=== PATIENT | male | born 1965 | race Two or more races ===

== ENCOUNTER 2017-12-28 09:30 | Inpatient (IN) | payer OTHER ==
[~2017-12-28] VITALS: Ht 172.7 cm; Wt 107.0 kg
[2017-12-28 10:13] LABS: Basophils # (auto) 0.1 uL; Basophils % (auto) 1.2 % (0.0-2.0); Eosinophils # (auto) 0.2 uL; Eosinophils % (auto) 2.7 % (0.0-7.0); Hematocrit 43.3 % (41.0-53.0); Hemoglobin 14.6 g/dL (13.5-17.5); Lymphocytes # (auto) 1.6 uL; Lymphocytes % (auto) 17.4 % (10.0-50.0); Mean Corpuscular Hemoglobin 31.3 pg (28.0-32.0); Mean Corpuscular Hgb Conc. 33.8 g/dL (32.0-36.0); Mean Corpuscular Volume 92.6 fL (80.0-100.0); Monocytes # (auto) 0.6 uL; Monocytes % (auto) 6.7 % (0.0-12.0); Neutrophils # (auto) 6.5 uL; Nucleated Red Blood Cells % 0.1 %; Platelet Count (auto) 257 10^3/uL (140-450); Red Blood Cells 4.67 10^6/uL (4.5-5.90); Red Cell Distribution Width 15.1 % (11.8-14.3)
[2017-12-28 10:35] LABS: Albumin 3.3 g/dL (3.4-5.0); BUN/Creatinine Ratio 8.2; Bilirubin, Total 0.4 mg/dL (0.2-1.0); Calcium 8.3 mg/dL (8.5-10.1); Magnesium 2.7 mg/dL (1.6-2.6); Potassium 3.8 mmol/L (3.5-5.1); Total Protein 7.5 g/dL (6.4-8.2)
[2017-12-28] MEDS ORDERED: ASPirin 81 mg TAB ONE (12:00)
[2017-12-28] MEDS ORDERED: ASPirin 81 mg TAB PO ONE (12:15)
[2017-12-28 13:16] LABS: INR 0.9 (0.9-1.15); Partial Thromboplastin Time 28.3 sec (22.64-33.71); Prothrombin Time 9.8 sec (9.37-12.3)
[2017-12-28] MEDS ORDERED: PROMETHAZINE HCL 25 MG/ML 1ML IV PRN (14:30)
[2017-12-28] MEDS ORDERED: NITROGLYCERIN 0.4 MG SL TAB SL PRN (14:30)
[2017-12-28] MEDS ORDERED: MORPHINE SULFATE 4 MG/ML SYR/VIAL IV PRN ×2 (14:30)
[2017-12-28] MEDS ORDERED: LORazepam 0.5 MG TAB PO PRN (14:30)
[2017-12-28] MEDS ORDERED: TEMAZEPAM 15 MG CAP PO PRN (14:30)
[2017-12-28] MEDS ORDERED: ACETAMINOPHEN 500 MG TAB PO PRN (14:30)
[2017-12-28] MEDS ORDERED: LACTULOSE 20Gm/30ML SOLN PO PRN (14:30)
[2017-12-28] MEDS ORDERED: ENOXAPARIN SOD 120 MG/0.8 ML SYRINGE SC SCH (14:30)
[2017-12-28] MEDS ORDERED: HYDROcodone-ACET 5/325MG TAB PO PRN (14:30)
[2017-12-28 15:05] LABS: Basophils # (auto) 0.1 uL; Basophils % (auto) 0.8 % (0.0-2.0); Eosinophils # (auto) 0.1 uL; Eosinophils % (auto) 0.8 % (0.0-7.0); Hemoglobin 14.5 g/dL (13.5-17.5); Lymphocytes # (auto) 1.5 uL; Lymphocytes % (auto) 12.5 % (10.0-50.0); Mean Corpuscular Hemoglobin 31.4 pg (28.0-32.0); Mean Corpuscular Hgb Conc. 33.7 g/dL (32.0-36.0); Mean Corpuscular Volume 93.3 fL (80.0-100.0); Monocytes # (auto) 0.6 uL; Monocytes % (auto) 4.8 % (0.0-12.0); Neutrophils # (auto) 9.6 uL; Neutrophils % (auto) 81.1 % (37.0-80.0); Platelet Count (auto) 255 10^3/uL (140-450); Red Cell Distribution Width 15.1 % (11.8-14.3); White Blood Cell 11.9 10^3/uL (4.4-10.8)
[2017-12-28] MEDS ORDERED: ENOXAPARIN SOD 120 MG/0.8 ML SYRINGE SC ONE (15:30)
[2017-12-28 15:31] LABS: CRP High Sensitivity 0.81 mg/dL (< 0.3)
[2017-12-28] MEDS: SODIUM CHLORIDE 0.9% 1,000 ML IV SCH (16:00)
[2017-12-28] MEDS: METOPROLOL TARTRATE 25 MG TAB PO SCH ×2 (16:01→22:00)
[2017-12-28] MEDS: NITROGLYCERIN 0.2MG/HR TOPICAL PATCH TD SCH (16:01)
[2017-12-28 21:48] LABS: Alcohol, Urine < 3.0 mg/dL (0-5); Amphetamine Screen, Urine NEGATIVE (NEGATIVE); Barbiturate Scree,Urine NEGATIVE (NEGATIVE); Benzodiazephine Screen, Urine NEGATIVE (NEGATIVE); Cannabinoid Screen, Urine NEGATIVE (NEGATIVE); Cocaine Screen, Urine NEGATIVE (NEGATIVE); Opiate Scree,Urine NEGATIVE (NEGATIVE); Phencyclidine Screen, Urine NEGATIVE (NEGATIVE)
[2017-12-28] MEDS ORDERED: ATORVASTATIN 20 MG TAB PO SCH (22:00)
[2017-12-28] MEDS: ENOXAPARIN SOD 120 MG/0.8 ML SYRINGE SC SCH (23:31)
[2017-12-29] VITALS (21 sets, daily range): BP systolic 101–148; BP diastolic 64–107
[2017-12-29] MEDS: SODIUM CHLORIDE 0.9% 1,000 ML IV SCH ×2 (04:00→16:57)
[2017-12-29 06:02] LABS: Basophils # (auto) 0.1 uL; Basophils % (auto) 1.1 % (0.0-2.0); Eosinophils # (auto) 0.2 uL; Eosinophils % (auto) 1.9 % (0.0-7.0); Hemoglobin 13.2 g/dL (13.5-17.5); Lymphocytes # (auto) 2.2 uL; Lymphocytes % (auto) 23.1 % (10.0-50.0); Mean Corpuscular Hemoglobin 31.3 pg (28.0-32.0); Mean Corpuscular Hgb Conc. 33.8 g/dL (32.0-36.0); Mean Corpuscular Volume 92.6 fL (80.0-100.0); Monocytes # (auto) 0.7 uL; Monocytes % (auto) 7.1 % (0.0-12.0); Neutrophils # (auto) 6.4 uL; Neutrophils % (auto) 66.8 % (37.0-80.0); Nucleated Red Blood Cells % 0.1 %; Platelet Count (auto) 229 10^3/uL (140-450); Red Blood Cells 4.21 10^6/uL (4.5-5.90); Red Cell Distribution Width 15.5 % (11.8-14.3); White Blood Cell 9.6 10^3/uL (4.4-10.8)
[2017-12-29 06:19] LABS: Alanine Aminotransferase 26 U/L (16-61); Albumin 2.8 g/dL (3.4-5.0); Alkaline Phosphatase 88 U/L (45-117); Anion Gap 8 (5-15); Aspartate Aminotransferase 45 U/L (15-37); BUN/Creatinine Ratio 13.2; Bilirubin, Total 0.3 mg/dL (0.2-1.0); Blood Urea Nitrogen 14 mg/dL (7-18); Calcium 8.4 mg/dL (8.5-10.1); Carbon Dioxide 27 mmol/L (21-32); Chloride 106 mmol/L (98-107); Cholesterol 184 mg/dL (< 200); GFR African American 95 mL/min; GFR Non-African American 79 mL/min; Glucose 105 mg/dL (74-106); HDL Cholesterol 27 mg/dL (40-59); Potassium 3.8 mmol/L (3.5-5.1); Sodium 141 mmol/L (136-145); Total Protein 6.1 g/dL (6.4-8.2); Triglycerides 463 mg/dL (< 150)
[2017-12-29 07:39] LABS: Urine Bacteria FEW /hpf (None Seen); Urine Blood Negative /uL (Negative); Urine Mucus FEW (None Seen); Urine Specific Gravity 1.021 (1.001-1.035); Urine WBC 9 /hpf (0 - 3)
[2017-12-29] MEDS ORDERED: ASPirin 325 MG TAB PO ONE (08:45)
[2017-12-29] MEDS ORDERED: LIDOCAINE 2%HCL (LOCAL ANESTH.) INJ 20ML MDV ONE (08:48)
[2017-12-29] MEDS ORDERED: IODIXANOL 320MG/ML 100ML BTL IV ONE ×2 (08:48→10:35)
[2017-12-29] MEDS: PANTOPRAZOLE 40 MG TAB PO SCH (08:53)
[2017-12-29] MEDS: NITROGLYCERIN 0.2MG/HR TOPICAL PATCH TD SCH (08:53)
[2017-12-29] MEDS: ENOXAPARIN SOD 120 MG/0.8 ML SYRINGE SC SCH (08:53)
[2017-12-29] MEDS: METOPROLOL TARTRATE 25 MG TAB PO SCH ×2 (08:56→21:41)
[2017-12-29] MEDS ORDERED: ANGIOMAX 250 MG VIAL IV ONE (10:12)
[2017-12-29] MEDS ORDERED: fentaNYL CITRATE 100 MCG/2 ML VL ONE (10:12)
[2017-12-29] MEDS ORDERED: MIDAZOLAM HCL 1MG/1ML-2 ML VIAL ONE (10:13)
[2017-12-29] MEDS ORDERED: SODIUM CHL 0.9% 50 ML ONE (10:13)
[2017-12-29] MEDS ORDERED: PRASUGREL HCL 10 MG TAB ONE (10:29)
[2017-12-29] MEDS ORDERED: EPTIFIBATIDE INJ (2MG/ML) 10ML VIAL IV ONE (10:36)
[2017-12-29] MEDS ORDERED: EPTIFIBATIDE DRIP(0.75MG/ML) 100 ML IV ONE ×2 (10:40→15:14)
[2017-12-29] MEDS ORDERED: NITROGLYCERIN 0.4MG/DOSE SPRAY 4.9GM ONE (10:43)
[2017-12-29] MEDS: LISINOPRIL 10 MG TAB PO SCH (15:30)
[2017-12-29] MEDS ORDERED: ATORVASTATIN 20 MG TAB PO SCH (22:00)
[2017-12-30] VITALS (13 sets, daily range): BP systolic 96–138; BP diastolic 63–88
[2017-12-30 04:02] LABS: Basophils # (auto) 0.1 uL; Basophils % (auto) 0.8 % (0.0-2.0); Eosinophils # (auto) 0.1 uL; Eosinophils % (auto) 0.7 % (0.0-7.0); Hematocrit 39.9 % (41.0-53.0); Hemoglobin 13.5 g/dL (13.5-17.5); Lymphocytes # (auto) 1.7 uL; Lymphocytes % (auto) 16.2 % (10.0-50.0); Mean Corpuscular Hemoglobin 31.5 pg (28.0-32.0); Mean Corpuscular Hgb Conc. 33.7 g/dL (32.0-36.0); Mean Corpuscular Volume 93.5 fL (80.0-100.0); Monocytes # (auto) 0.7 uL; Monocytes % (auto) 6.3 % (0.0-12.0); Neutrophils # (auto) 8.2 uL; Nucleated Red Blood Cells % 0.1 %; Platelet Count (auto) 204 10^3/uL (140-450); Red Blood Cells 4.27 10^6/uL (4.5-5.90); Red Cell Distribution Width 14.8 % (11.8-14.3); White Blood Cell 10.7 10^3/uL (4.4-10.8)
[2017-12-30 04:16] LABS: Albumin 2.8 g/dL (3.4-5.0); BUN/Creatinine Ratio 12.2; Calcium 8.4 mg/dL (8.5-10.1); Magnesium 2.4 mg/dL (1.6-2.6); Potassium 3.6 mmol/L (3.5-5.1)
[2017-12-30 04:37] LABS: Bilirubin, Total 0.7 mg/dL (0.2-1.0); Total Protein 6.1 g/dL (6.4-8.2)
[2017-12-30] MEDS: SODIUM CHLORIDE 0.9% 1,000 ML IV SCH (07:30)
[2017-12-30] MEDS ORDERED: PRASUGREL HCL 10 MG TAB PO SCH (10:00)
[2017-12-30] MEDS ORDERED: ASPirin 81 mg TAB PO SCH (10:00)
[2017-12-30] MEDS: LISINOPRIL 10 MG TAB PO SCH (10:00)
[2017-12-30] MEDS: PANTOPRAZOLE 40 MG TAB PO SCH (10:19)
[2017-12-30] MEDS: METOPROLOL TARTRATE 25 MG TAB PO SCH (10:20)
[2017-12-30] MEDS ORDERED: ATO40T PO (11:22)
[2017-12-30] MEDS ORDERED: ASPI-378 PO (11:22)
[2017-12-30] MEDS ORDERED: PRAS10TA6 PO (11:22)
[2017-12-30] MEDS ORDERED: MET25T PO (11:22)
== END 2017-12-30 12:34 | disposition home or self-care (01) | DRG 247 ==
LOC: ER 09:30 → OVERFLOW 09:31 → ICU WEST 12-29 10:55
PROVIDERS: ADMIT Internal Medicine; ATTEND Internal Medicine
PROC: 027034Z Dilation of Coronary Artery, One Artery with Drug-eluting Intraluminal Device, Percutaneous Approach (ICD-10-PCS; principal; 2017-12-29)
PROC: 4A023N7 Measurement of Cardiac Sampling and Pressure, Left Heart, Percutaneous Approach (ICD-10-PCS; 2017-12-29)
PROC: B41F1ZZ Fluoroscopy of Right Lower Extremity Arteries using Low Osmolar Contrast (ICD-10-PCS; 2017-12-29)
DX: I21.4 Non-ST elevation (NSTEMI) myocardial infarction (principal); E66.01 Morbid (severe) obesity due to excess calories; I11.9 Hypertensive heart disease without heart failure; E66.9 Obesity, unspecified; E78.5 Hyperlipidemia, unspecified; F17.210 Nicotine dependence, cigarettes, uncomplicated; I25.10 Atherosclerotic heart disease of native coronary artery without angina pectoris; K59.00 Constipation, unspecified; Z63.4 Disappearance and death of family member; Z82.3 Family history of stroke; Z82.49 Family history of ischemic heart disease and other diseases of the circulatory system; Z68.35 Body mass index [BMI] 35.0-35.9, adult; G47.00 Insomnia, unspecified
CPT/HCPCS: 36415; 71046; 80053; 80061; 80307; 81001; 82550; 83735; 83880; 84443; 84484; 85025; 85379; 85610; 85652; 85730; 86141; 86850; 86900; 86901; 87081; 92928; 93005; 93306; 93458; 94761; 99152; C1874; G0378; J2250; Q9967